=== PATIENT | female | born 1965 | race African-American/Black ===

== ENCOUNTER 2016-10-19 00:25 | Emergency (ER) ==
--- NOTE | 2016-10-19 00:54 | ED EKG INTERP ---
EKG Interpretation - EKG Time of EKG reading by physician:: 00:39 EKG Read and Signed by:: Shaka Del Cid Rate: 89 Rhythm: sinus rhythm with occasional premature ventricular complexes QRS: LVH ST Wave: non-specific ST changes Comments: no stemi Attestation - Scribe Verification/Attestation Scribe:: Anitra Major Acting as Scribe for:: Shaka Del Cid Scribe documention review:: This chart was documented by a scribe and accurately reflects the service the provider performed and the decisions made by the provider.
--- NOTE | 2016-10-19 01:01 | PROVIDER DOCUMENTATION ---
HPI-General Adult - General Chief Complaint: Cold Symptoms Stated Complaint: CHEST PAIN Time Seen by Provider: 10/19/16 00:32 Source: patient Allergies/Adverse Reactions: Patient Allergies Allergy/AdvReac Type Severity Reaction Status Date / Time No Known Allergies Allergy Verified 10/19/16 00:34 Home Medications: Home Medication List Medication Instructions Recorded Confirmed Last Taken Type Metformin HCl 500 mg PO DAILY 04/24/13 12/19/14 1 Day Ago History Cetirizine [Zyrtec] 10 mg PO DAILY #20 tablet 10/19/16 Unknown Rx Levofloxacin [Levaquin] 750 mg PO DAILY #10 tablet 10/19/16 Unknown Rx Losartan Potassium 50 mg PO DAILY 10/19/16 10/19/16 1 Day Ago History - History of Present Illness -Gen Adult Nature of Presenting Problems: Pt. is 51 yof that presents with c/o cough, sinus congestion and CUEVAS. Pt. reports the right side of her chest hurts and it is mostly after she coughs or takes a deep breath. Pt. denies any fever or other symptoms. Location of Pain/Injury: reports: head, chest. denies: face, mouth, neck, upper extremity, hand(s), abdomen, back, pelvis, genitalia, lower extremity, feet, upper body, lower body, generalized Pain Radiation: reports: no radiation Quality of Pain: reports: aching (Head), pressure (Head). denies: burning, cramping, dull, fullness, indigestion, sharp, stabbing, tearing, throbbing, tightness Severity: reports: mild. denies: moderate, severe Onset/Duration: reports: gradual Timing: reports: still present. denies: improving, gone now, resolved prior to arrival, intermittent, constant, changing over time, getting worse Context/Activities at Onset: reports: none. denies: recent emotional stress, recent physical stress, recent trauma history, possible bad food, cold exposure , out of country travel Modifying Factors: improves with: nothing Associated Symptoms: reports: cough, EENT symptoms, fatigue, headaches, malaise , muscle aches, sinus congestion/drainage, pain with inspiration. denies: anxiety, arm pain, back/neck pain, chest pain, constipation, diaphoresis, diarrhea, dizziness, fever/chills, genitourinary problems, heartburn, joint pain , loss of appetite, nausea, rash, seizure, shortness of breath, sensory/motor loss, swelling/mass in abdomen, syncope, vomiting, weakness, trouble walking Similar Symptoms Previously?: Yes Recently seen or treated by another doctor?: No Review of Systems - Adult - REVIEW OF SYSTEMS - ADULT Constitutional: reports: see HPI. denies: chills, fever, fatique Eyes: reports: see HPI. denies: discharge, blurred vision, double vision, eye pain Ears, Nose, Mouth & Throat: reports: see HPI, sinus problem. denies: ear discharge, ear pain, hearing loss, nose pain, loose teeth, mouth/dental pain, throat pain, throat swelling Cardiovascular: reports: see HPI. denies: chest pain, edema, irregular heart rate, palpitations, syncope Respiratory: reports: see HPI, cough. denies: dyspnea on exertion, pleurisy, shortness of breath Gastrointestinal: reports: see HPI. denies: abdominal pain, hematemesis, diarrhea, difficulty swallowing, nausea, vomiting Genitourinary: reports: see HPI. denies: dysuria, frequency, hematuria, incontinence, urgency Musculoskeletal: reports: see HPI. denies: bone pain, back pain, joint pain, joint swelling, muscle aches, neck pain Integumentary: reports: see HPI. denies: hives, hair loss, itching, rash, skin thickening Neurological: reports: see HPI, headache/migraines. denies: ataxia, dizziness/ vertigo, numbness, seizure, tremors Psychiatric: reports: see HPI. denies: anxiety, depression, emotional problems , insomnia, panic attacks, suicidal thoughts Past History - Adult - PAST MEDICAL HISTORY-ADULT Review of Records: reports: Old Records Reviewed, Nursing Assessment Review, Medications Reviewed, Social history reviewed & non-contributory. Major Childhood Illnesses: reports: denies history Cardiovascular: reports: HTN Respiratory: reports: denies history Gastrointestinal: reports: GERD Obstetrical/Gynecological: reports: denies history Genitourinary: reports: denies history Musculoskeletal: reports: denies history Neurological: reports: denies history Endocrine/Immune: reports: denies history, Diabetes Other Conditions: reports: denies history - IMMUNIZATION STATUS Childhood Immunizations: See Nurse Assessment Flu Vaccine: See Nurse Assessment - FAMILY HISTORY Family History: reviewed, not pertinent - SOCIAL HISTORY Smoking: non-smoker Physical Exam-General - PHYSICAL EXAM-ADULT Initial Vital Signs Reviewed: Yes - CONSTITUTIONAL General Appearance: alert, mild distress, obese. negative: thin, anxious, lethargic, slow to respond, obtunded, combative - EYES Eyes: PERRL/EOMI, pink conjunctivae. negative: conjuctival exudate, scleral icterus, subconjunctival hemorrhage - HEAD, EARS, NOSE, MOUTH & THROAT HENMT: normocephalic/atraumatic, moist mucous membranes. negative: angioedema, frontal tenderness, maxillary tenderness - NECK Neck: non-tender, full range of motion, supple, normal inspection. negative: lymphadenopathy, trachial deviation, thyromegaly - RESPIRATORY Respiratory: lungs clear, normal breath sounds. negative: crackles, rales, rhonchi, stridor, wheezing - CARDIOVASCULAR Cardiovascular: normal peripheral pulses, regular rate, rhythm, no edema, no JVD , no murmur. negative: extra beats, friction rub, irregularly irregular - CHEST (BREASTS) Chest/Breast: deferred - GASTROINTESTINAL (ABDOMEN) Abdominal Exam: normal bowel sounds, non tender, soft. negative: distended, guarding, rigid, rebound, tenderness, hernia, mass - GENITOURINARY Female Genitalia/Pelvic Exam: deferred Rectal Exam: deferred Hemoccult Exam: deferred - LYMPHATIC Lymphatic: no adenopathy. negative: axilla node tender, cervical node tenderness - MUSCULOSKELETAL Back Exam: normal inspection, no CVA tenderness, no vertebral tenderness. negative: ecchymosis, swelling, vertebral tenderness Extremity: normal range of motion, non-tender, normal gait, normal inspection. negative: deformity, erythema, inflammation, swelling, tenderness Peripheral Pulses: radial (R): 2+, radial (L): 2+ - SKIN Integumentary: normal color, normal turgor, warm/dry. negative: cyanosis, diaphoresis, ecchymosis, erythema, jaundice, mottled, pallor, petechiae, purpura , rash, swelling, tenderness - NEUROLOGIC Neurologic: grossly normal, no motor/sensory deficits. negative: aphasia, facial droop, focal weakness, motor weakness, sensory deficit - PSYCHIATRIC Psych/Mental Status: normal mood/affect, normal thought content, normal thought process, oriented x 3. negative: anxious, paranoid, tearful Progress - PLAN OF CARE/RESULTS Progress/Plan/Lab Results: Discussed results and plan of care with patient. Patient agrees with plan and verbalizes understanding. Vital Signs Temp Pulse Resp BP Pulse Ox 10/19/16 00:31 98.5 F 99 H 18 195/95 99 No Known Allergies Allergy (Verified 10/19/16 00:34) Metformin HCl 500 mg PO DAILY 04/24/13 Losartan Potassium 50 mg PO DAILY 10/19/16 Laboratory 10/19/16 00:41 Influenza A (Rapid) NEGATIVE Influenza B (Rapid) NEGATIVE Orders Category Date Time Status CHEST-2 VIEWS [RAD] Stat Exams 10/19/16 00:[address] Stat Lab 10/19/16 00:41 Completed EKG [EKG] Stat Ther 10/19/16 00:38 Ordered Laboratory Tests 10/19/16 00:41 Influenza A (Rapid) NEGATIVE Influenza B (Rapid) NEGATIVE - XRAY 1 XRAY Study: Chest XRAY Interpretation: NÚÑEZ ([place]) Departure - Departure Time of Disposition Order: 01:19 DIAGNOSIS: Acute frontal sinusitis Qualifiers: Recurrence: non-recurrent Qualified Code(s): J01.10 - Acute frontal sinusitis, unspecified Disposition: HOME 01 Certified Medical Emergency: Emergent Condition: Stable Additional Instructions: Follow up with primary care physician Take medications as directed Return to ED for any concerns or worsening of symptoms ED Follow Up Instructions: You have been treated by a care provider in the Emergency Department. These instructions are being provided to you so you can have an understanding of how to care for yourself upon discharge. Upon discharge from the Emergency Department, you are responsible for making arrangements for follow-up care by a physician of your choice. Take all prescribed medications as directed. Return to the Emergency Department immediately for any new or worsening symptoms. You may call the Physician Referral phone number at [phone] to obtain a list of Physicians who are taking new patients. Prescriptions: Levofloxacin [Levaquin] 750 mg PO DAILY #10 tablet Cetirizine [Zyrtec] 10 mg PO DAILY #20 tablet Attestation - Physician/ REGIS Attestation Patient care was provided by Advanced Practice Provider:: Yes Advanced Practice Provider:: Bridger Moya Advanced Practice Provider documentation review:: The Mid-level provider documentation, treatment plan and medical decision making was reviewed by the physician who agrees with all treatment and medical decision making by the P.
[2016-10-19] MEDS ORDERED: LEVAQUIN PO ONE (01:19)
[2016-10-19] MEDS ORDERED: DECADRON IM ONE (01:19)
[2016-10-19] MEDS ORDERED: ZYRTEC PO ONE (01:20)
[2016-10-19 01:41] VITALS: BP 185/100
--- NOTE | 2016-10-19 09:23 | EKG Report ---
Test Performed on : 10/19/2016 00:39:34 AM Test Reason : CP Blood Pressure : / mmHG Vent. Rate : 089 BPM Atrial Rate : 089 BPM P-R Int : 164 ms QRS Dur : 092 ms QT Int : 360 ms P-R-T Axes : 051 -11 011 degrees QTc Int : 438 ms Sinus rhythm. with occasional premature ventricular complexes. Possible Left atrial enlargement Left ventricular hypertrophy Nonspecific ST and T wave abnormality Abnormal ECG When compared with ECG of 11-DEC-2014 15:54, premature ventricular complexes. are now present Unconfirmed Result
--- NOTE | 2016-10-19 09:48 | Diag Imaging Result Document ---
PROCEDURE NAME: CHEST-2 VIEWS - 10/19/2016 TWO VIEWS OF THE CHEST: FINDINGS: There is ill-defined opacity in the left upper lobe which was not present on 12/11/2014. Otherwise, there has been no significant change. IMPRESSION: Minimal bronchopneumonia left upper lobe. Advise followup until clear.
== END 2016-10-19 01:41 | disposition home or self-care (01) ==
LOC: P.ED 00:25
DX: J01.10 Acute frontal sinusitis, unspecified (principal); R05 Cough; R09.81 Nasal congestion; R51 Headache; R07.9 Chest pain, unspecified; R53.83 Other fatigue; R53.81 Other malaise; M79.1 Myalgia; R07.1 Chest pain on breathing; I10 Essential (primary) hypertension; E11.9 Type 2 diabetes mellitus without complications; E66.9 Obesity, unspecified; Z79.899 Other long term (current) drug therapy
CPT/HCPCS: 71020; 87804; 93005; 96372

== ENCOUNTER 2016-10-23 21:50 | Emergency (ER) ==
[2016-10-23 21:58] VITALS: BP 200/101
--- NOTE | 2016-10-23 23:08 | PROVIDER DOCUMENTATION ---
HPI-General Adult - General Chief Complaint: Return/Recheck Stated Complaint: RETURN/RECHECK Time Seen by Provider: 10/23/16 22:36 Source: patient Allergies/Adverse Reactions: Patient Allergies Allergy/AdvReac Type Severity Reaction Status Date / Time No Known Allergies Allergy Verified 10/19/16 00:34 Home Medications: Home Medication List Medication Instructions Recorded Confirmed Last Taken Type Metformin HCl 500 mg PO DAILY 04/24/13 10/23/16 1 Day Ago History Cetirizine [Zyrtec] 10 mg PO DAILY #20 tablet 10/19/16 10/23/16 Unknown Rx Levofloxacin [Levaquin] 750 mg PO DAILY #10 tablet 10/19/16 10/23/16 Unknown Rx Losartan Potassium 50 mg PO DAILY 10/19/16 10/23/16 1 Day Ago History Azithromycin [Zithromax Z-Augustus] 250 mg PO DIRECTED #1 pkg 10/23/16 Unknown Rx Benzonatate [Tessalon] 100 mg PO TID PRN PRN #30 capsule 10/23/16 Unknown Rx - History of Present Illness -Gen Adult Nature of Presenting Problems: PT STATED SHE WAS SEEN HERE THURSDAY AND WAS TOLD SHE HAD A URI AND WAS CALLED TODAY AND WAS TOLD HER X-RAY SHOWED PNEUMONIA AND TO COME TO THE ED FOR A RECHECK. Location of Pain/Injury: reports: none Pain Radiation: reports: no radiation Quality of Pain: reports: none Onset/Duration: reports: 5 days ago Timing: reports: still present Context/Activities at Onset: reports: none Modifying Factors: improves with: nothing Associated Symptoms: reports: cough, fever/chills. denies: diarrhea, shortness of breath, vomiting, weakness Similar Symptoms Previously?: Yes Recently seen or treated by another doctor?: Yes Review of Systems - Adult - REVIEW OF SYSTEMS - ADULT Constitutional: reports: chills. denies: fever Ears, Nose, Mouth & Throat: reports: sinus problem. denies: ear pain, throat pain Cardiovascular: denies: chest pain, irregular heart rate, palpitations Respiratory: reports: cough. denies: shortness of breath, wheezing Gastrointestinal: denies: abdominal pain, diarrhea, nausea, vomiting Musculoskeletal: reports: back pain, muscle aches, neck pain Integumentary: denies: hives, itching, rash All Other Systems: Reviewed and Negative Past History - Adult - PAST MEDICAL HISTORY-ADULT Review of Records: reports: Old Records Reviewed, Nursing Assessment Review Cardiovascular: reports: HTN Gastrointestinal: reports: GERD Endocrine/Immune: reports: Diabetes Diabetes controlled by:: PO Meds - PRIOR SURGERIES/PROCEDURES Surgical/Procedure History: reports: reviewed, not pertinent - IMMUNIZATION STATUS Childhood Immunizations: See Nurse Assessment Flu Vaccine: See Nurse Assessment - FAMILY HISTORY Family History: reviewed, not pertinent - SOCIAL HISTORY Living Situation: family Physical Exam-General - PHYSICAL EXAM-ADULT Initial Vital Signs Reviewed: Yes - CONSTITUTIONAL General Appearance: appears well, alert, no apparent distress - RESPIRATORY Respiratory: chest non-tender, no pleuratic chest pain, no respiratory distress , no accessory muscle use, other (CONGESTED) - CARDIOVASCULAR Cardiovascular: normal peripheral pulses, regular rate, rhythm, no edema, no gallop, no JVD, no murmur - GASTROINTESTINAL (ABDOMEN) Abdominal Exam: normal bowel sounds, non tender, soft, no organomegaly, no pulsatile mass - MUSCULOSKELETAL Back Exam: normal inspection Extremity: normal range of motion, non-tender, normal gait, normal inspection, no pedal edema, no calf tenderness, normal capillary refill - SKIN Integumentary: normal color, normal turgor, warm/dry - PSYCHIATRIC Psych/Mental Status: normal mood/affect, normal thought content, normal thought process, oriented x 3 Departure - Departure Time of Disposition Order: 23:10 DIAGNOSIS: Pneumonia Qualifiers: Pneumonia type: due to unspecified organism Laterality: unspecified laterality Lung location: unspecified part of lung Qualified Code(s): J18.9 - Pneumonia, unspecified organism Disposition: HOME 01 Certified Medical Emergency: Emergent Condition: Good Additional Instructions: ED Follow Up Instructions: You have been treated by a care provider in the Emergency Department. These instructions are being provided to you so you can have an understanding of how to care for yourself upon discharge. Upon discharge from the Emergency Department, you are responsible for making arrangements for follow-up care by a physician of your choice. Take all prescribed medications as directed. Return to the Emergency Department immediately for any new or worsening symptoms. You may call the Physician Referral phone number at [phone] to obtain a list of Physicians who are taking new patients. Prescriptions: Benzonatate [Tessalon] 100 mg PO TID PRN PRN #30 capsule PRN Reason: Cough Azithromycin [Zithromax Z-Augustus] 250 mg PO DIRECTED #1 pkg Referrals: Brigid Hollins MD [Primary Care Provider] - Forms: Return to School/Parent Work Instructions: Azithromycin tablets, Benzonatate capsules, Pneumonia, Adult, [id number] Attestation - Scribe Verification/Attestation Scribe:: Broderick Griffiths Acting as Scribe for:: Vern Boyer Scribe documention review:: This chart was documented by a scribe and accurately reflects the service the provider performed and the decisions made by the provider.
== END 2016-10-23 23:10 | disposition home or self-care (01) ==
LOC: P.ED 21:50
DX: J18.9 Pneumonia, unspecified organism (principal); R05 Cough; R50.9 Fever, unspecified; M54.9 Dorsalgia, unspecified; M79.1 Myalgia; M54.2 Cervicalgia; I10 Essential (primary) hypertension; E11.9 Type 2 diabetes mellitus without complications; R09.89 Other specified symptoms and signs involving the circulatory and respiratory systems; Z79.899 Other long term (current) drug therapy
CPT/HCPCS: 99282